=== PATIENT | male | born 1990 | race Caucasian/White ===

== ENCOUNTER 2019-01-05 14:20 | Emergency (ER) | payer SELFPAY ==
[~2019-01-05] VITALS: Ht 185.4 cm; Wt 103.0 kg
[2019-01-05 14:26] VITALS: BP 155/82; PULSE 87; RESP 18; Ht 185.4 cm; Wt 103.0 kg
[2019-01-05] MEDS ORDERED: IBUPROFEN 600 MG TAB PO ONE (16:30)
[2019-01-05] MEDS ORDERED: HYDROCODONE/APAP (10/325) TAB PO ONE (16:30)
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
[2019-01-05] MEDS ORDERED: HYDR-4011 PO (17:02)
[2019-01-05] MEDS ORDERED: IBUP-1542 PO (17:02)
[2019-01-05] MEDS ORDERED: BACITUD TOP (17:20)
== END 2019-01-05 17:49 | disposition home or self-care (01) ==
LOC: FTE 14:20
DX: S16.1XXA Strain of muscle, fascia and tendon at neck level, initial encounter (principal); S79.912A Unspecified injury of left hip, initial encounter; S09.90XA Unspecified injury of head, initial encounter; S59.902A Unspecified injury of left elbow, initial encounter; R51 Headache; V27.9XXA Unspecified motorcycle rider injured in collision with fixed or stationary object in traffic accident, initial encounter
CPT/HCPCS: 70450; 72040; 73510; 81003